=== PATIENT | male | born 1965 | race Caucasian/White ===

== ENCOUNTER 2021-02-27 13:45 | Emergency (ER) | payer OTHER, SELFPAY ==
[2021-02-27 14:06] VITALS: BP 137/62; PULSE 94; RESP 18; TEMP 37.3; O2SAT 98
--- NOTE | 2021-02-27 14:55 | PC.NURSE ---
PA at bedside for pt assessment.
[2021-02-27] MEDS: KETOROLAC (*BKC) 60 MG/2 ML VIAL IM (15:10)
[2021-02-27] MEDS: methylPREDNISolone SOD SUCC 125 MG VIAL IM (15:10)
--- NOTE | 2021-02-27 15:20 | ED.BACK ---
HPI - Back Pain/Injury General Chief Complaint: Back Pain/Injury Stated Complaint: Back Pain Going down R leg Time Seen by Provider: 02/27/21 14:16 Source: patient Mode of arrival: ambulatory Limitations: no limitations History of Present Illness HPI Narrative: Patient with chronic low back pain presents with chief complaint of exacerbation of his low back pain with right-sided radiculopathy. Patient has chronic back pain and neuropathy for which he takes gabapentin and oxycodone. Patient reports that he had degenerative disc and herniations. He denies any recent falls or injuries. Patient denies any loss of bowel or bladder function or saddle paresthesias. Patient denies abdominal pain, nausea or vomiting. He states he has not reached out to his primary care provider prescribes his pain medications to let him know if this flareup as he is out of town. Related Data Home Medications Medication Instructions Recorded Confirmed gabapentin PO 02/27/21 oxycodone-acetaminophen PO 02/27/21 tramadol mg 02/27/21 Allergies Allergy/AdvReac Type Severity Reaction Status Date / Time NKDA Allergy Mild Unknown Uncoded 02/27/21 14:35 Review of Systems Review of Systems: CONSTITUTIONAL: Denies fever, chills, or sweats. EYES: Denies visual changes, redness, or discharge. ENT: Denies rhinorrhea, congestion, sore throat, or otalgia. CARDIOVASCULAR: Denies chest pain, palpitations, or edema. RESPIRATORY: Denies cough or dyspnea. GASTROINTESTINAL: Denies abdominal pain, nausea, vomiting, or diarrhea. GENITOURINARY: Denies dysuria or hematuria. SKIN: Denies rash or itching. MUSCULOSKELETAL: Reports back pain, denies joint pain or myalgia. NEUROLOGIC: Denies headache, numbness, dizziness, or weakness. PSYCHIATRIC: Denies anxiety or depression. [facility] Past Medical History Medical History (Updated 02/27/21 @ 15:27 by Jm Bass PA-C) Degenerative disc disease Herniated disc Exam Narrative: GENERAL: Well-appearing, well-nourished, appears uncomfortable. HEAD: Normocephalic, atraumatic. EYES: PERRLA and EOMI. NECK: Supple. No adenopathy or masses. CHEST: Clear to auscultation. No respiratory distress. No wheezes rales or rhonchi HEART: Regular rate and rhythm. No murmur heard. Normal peripheral pulses. BACK: No pain with palpation of cervical, thoracic or lumbar spine however radicular pain elicited with palpation of right gluteal area. Also tender with palpation of right iliotibial band. Patient unable to lay down for straight leg raise test. EXTREMITIES: Normal range of motion. No edema. SKIN: Healed surgical incisions with deformity to the anterior medial aspect of the lower right leg. Warm, dry, no rash. NEURO: No focal deficits. Alert and oriented x3. PSYCH: Normal mood and affect. Course Vital Signs Vital signs: Vital Signs Temperature 99.2 F 02/27/21 14:06 Pulse Rate 94 02/27/21 14:06 Respiratory Rate 18 02/27/21 14:06 Blood Pressure 137/62 02/27/21 14:06 Pulse Oximetry 98 02/27/21 14:06 Temperature 99.2 F 02/27/21 14:06 Pulse Rate 94 02/27/21 14:06 Respiratory Rate 18 02/27/21 14:06 Blood Pressure 137/62 02/27/21 14:06 Pulse Oximetry 98 02/27/21 14:06 MDM - Back Pain/Injury MDM Narrative Medical decision making narrative: Patient denies any new injury in which extremity with likely find no etiology. Patient already takes oxycodone, gabapentin and tramadol. Will give patient Toradol and Solu-Medrol injection. Patient will be prescribed Medrol Dosepak and Toradol for home. Patient denies any contraindications to NSAIDs. Patient denies having diabetes. Discussed with patient the need to follow-up with his primary care for further investigation and management of his symptoms. Differential Diagnosis Differential diagnosis: Likely lumbar radiculopathy, sciatica, strain of lumbar region, renal colic, pyelonephritis, thoracic back pain and AAA Discharge Plan Discharge Cli
== END 2021-02-27 15:49 | disposition home or self-care (01) ==
PROVIDERS: Emergency Provider Emergency Medicine; PCP Family Medicine Adolescent Medicine
DX: M54.16 Radiculopathy, lumbar region (principal)
CPT/HCPCS: 96372; 99284; J1885; J2930

== ENCOUNTER 2021-11-14 01:11 | Day surgery (SDC) | payer OTHER, SELFPAY ==
[2021-10-30 12:32] VITALS: BMI 34.7
--- NOTE | 2021-11-13 16:05 | PM.HPGS ---
History of Present Illness History of Present Illness Consent: Risks, benefits, and alternatives have been discussed and questions answered. Patient agrees to proceed with procedure. Chief complaint: positive cologuard Narrative: Kaiden Campbell is a 56 year old male Referred for colon cancer screening. He performed a Cologuard test which was positive Review of Systems Review of Systems: All systems reviewed & are unremarkable except as noted in HPI and below PMFSH Past Medical History Medical History Degenerative disc disease Herniated disc Social History Social History Smoking status: Current every day smoker Tobacco type: cigarettes Second hand tobacco smoke exposure: No Alcohol intake: current Drinks per week: 2 Alcohol use details: twice monthly Substance use: never Substance use type: does not use Living arrangements: with family Additional occupation/education comments: Disabled Gender identity (if verbalized by the patient): Male Sexual Orientation (if Verbalized by the Patient): Straight or Heterosexual Spiritual care concerns: No Agree to blood products: Yes Meds Home Medications and Allergies Home Medications Medication Instructions Recorded Confirmed Type trazodone 150 mg tablet 150 mg PO QHS PRN 07/09/21 11/14/21 History tadalafil 20 mg tablet 20 mg PO .qod PRN tablet 07/25/21 11/14/21 History gabapentin 800 mg tablet 800 mg PO TID #90 tablet 08/12/21 11/14/21 Rx zolpidem 10 mg tablet 10 mg PO QHS PRN #30 tablet 09/12/21 11/14/21 Rx rosuvastatin 40 mg tablet 40 mg PO DAILY #90 tablet 10/07/21 11/14/21 Rx testosterone cypionate 200 mg/mL 200 mg IM .2 weeks #10 ml 10/07/21 11/14/21 Rx intramuscular oil lisinopril 20 mg tablet 20 mg PO DAILY #90 tablet 10/14/21 11/14/21 Rx oxycodone-acetaminophen 10 mg-325 1.5 tablet PO BID PRN #90 tablet 11/10/21 11/14/21 Rx mg tablet Allergies Allergy/AdvReac Type Severity Reaction Status Date / Time NKDA Allergy Mild Unknown Uncoded 11/14/21 07:41 Exam Resp: Auscultation: clear to auscultation bilaterally Cardio: Rate: regular rate Rhythm: regular rhythm GI: GI Palp: Yes Soft to palpation and No Tenderness to palpation present (GI) Assessment and Plan Assessment and plan (1) Colon cancer screening: Code(s): Z12.11 - Encounter for screening for malignant neoplasm of colon Status: Acute Assessment and Plan: Colonoscopy with possible biopsy or polypectomy or cautery or injection of substances.
[2021-11-14 07:42] VITALS: BP 152/85; PULSE 99; RESP 17; TEMP 36.7; O2SAT 100; BMI 33.7
[2021-11-14] MEDS: LACTATED RINGERS 1,000 ML 150 ML IV CONT (08:11)
--- NOTE | 2021-11-14 09:03 | P.PNAN_ITS ---
Anes - Initial Pre Proc Eval Procedure: Operation Date: 11/14/21 09:00 Proposed Procedures p Colonoscopy - Mj Monteiro MD Date/Time: 11/14/21 09:03 Surgeon: Mj Monteiro MD Pre Op Diagnosis: positive cologuard Patient Data Age: 56 Gender: M Height: 1.78 m Weight: 106.9 kg Last Vital Signs Temp 98.1 F 11/14/21 07:42 Pulse 99 11/14/21 07:42 Resp 17 11/14/21 07:42 BP 152/85 H 11/14/21 07:42 Pulse Ox 100 11/14/21 07:42 Allergies Allergy/AdvReac Type Severity Reaction Status Date / Time NKDA Allergy Mild Unknown Uncoded 11/14/21 07:41 Home Medications Medication Instructions Recorded Confirmed Type trazodone 150 mg tablet 150 mg PO QHS PRN 07/09/21 11/14/21 History tadalafil 20 mg tablet 20 mg PO .qod PRN tablet 07/25/21 11/14/21 History gabapentin 800 mg tablet 800 mg PO TID #90 tablet 08/12/21 11/14/21 Rx zolpidem 10 mg tablet 10 mg PO QHS PRN #30 tablet 09/12/21 11/14/21 Rx rosuvastatin 40 mg tablet 40 mg PO DAILY #90 tablet 10/07/21 11/14/21 Rx testosterone cypionate 200 mg/mL 200 mg IM .2 weeks #10 ml 10/07/21 11/14/21 Rx intramuscular oil lisinopril 20 mg tablet 20 mg PO DAILY #90 tablet 10/14/21 11/14/21 Rx oxycodone-acetaminophen 10 mg-325 1.5 tablet PO BID PRN #90 tablet 11/10/21 11/14/21 Rx mg tablet Patient hx anesthesia problems: none Family hx anesthesia problems: none Results Review: All pre-operative results and documents have been reviewed as part of the pre-operative evaluation. [facility] Past Medical History Medical History Degenerative disc disease Herniated disc Social History Social History Smoking status: Current every day smoker Tobacco type: cigarettes Second hand tobacco smoke exposure: No Alcohol intake: current Drinks per week: 2 Alcohol use details: twice monthly Substance use: never Substance use type: does not use Living arrangements: with family Additional occupation/education comments: Disabled Gender identity (if verbalized by the patient): Male Sexual Orientation (if Verbalized by the Patient): Straight or Heterosexual Spiritual care concerns: No Agree to blood products: Yes Anes - Eval Final PreProcedure Day of Procedure 11/14/21 09:03 Patient weight: obese Heart: regular rate and rhythm Lungs: clear to auscultation Airway: Mallampati scale class III Neurological: alert and oriented Last oral intake: >/= 8 hours ASA classification: III Emergent: no Anesthetic plan: proceed Anesthesia type and monitoring: general GIVS and standard monitoring Results Review: All pre-operative results and documents have been reviewed as part of the pre-operative evaluation. Informed Consent: The patient's anesthetic plan and its attendant risks and benefits were discussed with the patient/family/POA. Questions were solicited and answers provided to the satisfaction of the patient/family/POA.
[2021-11-14 09:51] VITALS: BP 80/52; PULSE 78; RESP 20; O2SAT 98
[2021-11-14 10:01] VITALS: BP 104/55; PULSE 82; RESP 20; O2SAT 98
[2021-11-14 10:11] VITALS: BP 103/68; PULSE 74; RESP 22; O2SAT 98
--- NOTE | 2021-11-14 10:18 | SUR.PHASEII ---
DR FENTON MADE AWARE OF PT'S VITAL SIGNS IN POST OP, CAME OUT OF PROCEDURE B/P 80/52, CURRENTLY 104/55, PT AWAKE AND TALKING, NO COMPLAINTS OF DIZZINESS OR LIGHTHEADEDNESS, NO NEW ORDERS RECEIVED. PT AND SPOUSE INSTRUCTED ON ALL SAFETY CONCERNS AND STATE UNDERSTANDING.
== END 2021-11-14 10:25 | disposition home or self-care (01) ==
PROVIDERS: PCP Family Medicine Adolescent Medicine; Visit Provider Internal Medicine Gastroenterology
PROC: 0DJD8ZZ Inspection of Lower Intestinal Tract, Via Natural or Artificial Opening Endoscopic (ICD-10-PCS; CPT 45378; principal; 2021-11-14 09:00)
DX: Z12.11 Encounter for screening for malignant neoplasm of colon (principal); D12.2 Benign neoplasm of ascending colon; D12.4 Benign neoplasm of descending colon; D12.5 Benign neoplasm of sigmoid colon; R19.5 Other fecal abnormalities; F17.210 Nicotine dependence, cigarettes, uncomplicated; E66.9 Obesity, unspecified; Z68.33 Body mass index [BMI] 33.0-33.9, adult; M47.9 Spondylosis, unspecified
CPT/HCPCS: 45385; 45381; 88305; J2370; J2704; J7120

== ENCOUNTER 2023-10-20 00:40 | Day surgery (SDC) | payer OTHER, MEDICAID, SELFPAY ==
[2023-10-06 14:49] VITALS: BMI 33.0
[2023-10-20 06:32] VITALS: BP 135/73; PULSE 80; RESP 18; TEMP 36.2; O2SAT 96
[2023-10-20] MEDS: LACTATED RINGERS 1,000 ML 150 ML IV CONT (06:43)
--- NOTE | 2023-10-20 07:23 | WPDANESEPPF ---
Anes - Initial Pre Proc Eval Procedure: Operation Date: 10/20/23 07:30 Proposed Procedures p Screening Colonoscopy - Jose Hughes MD Date/Time: 10/20/23 07:23 Surgeon: Jose Hughes MD Pre Op Diagnosis: hx of colon polyps Patient Data Age: 58 Gender: M Height: 1.78 m Weight: 103.1 kg Last Vital Signs Temp 97.1 F L 10/20/23 06:32 Pulse 80 10/20/23 06:32 Resp 18 10/20/23 06:32 BP 135/73 10/20/23 06:32 Pulse Ox 96 10/20/23 06:32 O2 Del Method Room Air 10/20/23 06:32 Allergies Allergy/AdvReac Type Severity Reaction Status Date / Time No Known Allergies Allergy Verified 10/20/23 06:30 Home Medications Medication Instructions Recorded Confirmed Type tadalafil 20 mg tablet 20 mg PO .qod PRN Erectile 07/06/22 10/06/23 Rx Dysfunction #10 tabs finasteride 5 mg tablet 5 mg PO DAILY #90 tabs 04/28/23 10/06/23 Rx lisinopril 20 mg tablet 20 mg PO DAILY #90 tabs 05/24/23 10/06/23 Rx rosuvastatin 20 mg tablet 20 mg PO DAILY #90 tabs 06/04/23 10/06/23 Rx zolpidem 10 mg tablet 10 mg PO QHS PRN sleep #30 tabs 06/14/23 10/06/23 Rx tadalafil 5 mg tablet 5 mg PO DAILY #30 tabs 08/05/23 10/06/23 Rx tamsulosin 0.4 mg capsule 0.8 mg PO DAILY #60 caps 08/30/23 10/06/23 Rx gabapentin 800 mg tablet 800 mg PO TID #270 tabs 09/02/23 10/06/23 Rx oxycodone-acetaminophen 10 mg-325 1.5 tablet PO BID PRN pain #90 tabs 09/20/23 10/06/23 Rx mg tablet testosterone cypionate 200 mg/mL 200 mg IM .2 weeks #10 mL 10/14/23 10/20/23 Rx intramuscular oil Patient hx anesthesia problems: none Family hx anesthesia problems: none Results Review: All pre-operative results and documents have been reviewed as part of the pre-operative evaluation. [facility] Past Medical History Medical History Degenerative disc disease Herniated disc History of broken leg Surgical History Surgical History History of neck surgery Hx of carpal tunnel repair Family History Family History Mother Heart disease Hypertension Sibling Heart disease Diabetes mellitus Social History Social History Smoking packs per day: 1.5 Smoking cigarettes per day: 30.0 Years smoked: 40 Smoking pack-years: 60.00 Smoking status: Heavy tobacco smoker Tobacco type: cigarettes Second hand tobacco smoke exposure: No Alcohol intake: current Drinks per week: 2 Alcohol use details: couple times a month Substance use: current Substance use type: marijuana Other substance usage details: gummies occas Living arrangements: with family Occupation/Education: other Additional occupation/education comments: Disabled Gender identity (if verbalized by the patient): Male Sexual Orientation (if Verbalized by the Patient): Straight or Heterosexual Spiritual care concerns: No Agree to blood products: Yes Anes - Eval Final PreProcedure Day of Procedure 10/20/23 07:23 Patient weight: obese Heart: regular rate and rhythm Lungs: clear to auscultation Airway: Mallampati scale class II Neurological: alert and oriented Last oral intake: >/= 8 hours ASA classification: III Emergent: no Anesthetic plan: proceed Anesthesia type and monitoring: general GIVS and standard monitoring Results Review: All pre-operative results and documents have been reviewed as part of the pre-operative evaluation. Informed Consent: The patient's anesthetic plan and its attendant risks and benefits were discussed with the patient/family/POA. Questions were solicited and answers provided to the satisfaction of the patient/family/POA.
--- NOTE | 2023-10-20 07:27 | PM.HPGS ---
History of Present Illness History of Present Illness Consent: Risks, benefits, and alternatives have been discussed and questions answered. Patient agrees to proceed with procedure. Chief complaint: hx of colon polyps Narrative: Kaiden Campbell is a 58 year old male with last colonoscopy 10/2021 with several TA polyps removed Review of Systems Review of Systems: All systems reviewed & are unremarkable except as noted in HPI and below PMFSH Past Medical History Medical History (Updated 10/20/23 @ 07:29 by Jose Hughes MD) Adenomatous colon polyp Degenerative disc disease Herniated disc History of broken leg Surgical History Surgical History History of neck surgery Hx of carpal tunnel repair Family History Family History Mother Heart disease Hypertension Sibling Heart disease Diabetes mellitus Social History Social History Smoking packs per day: 1.5 Smoking cigarettes per day: 30.0 Years smoked: 40 Smoking pack-years: 60.00 Smoking status: Heavy tobacco smoker Tobacco type: cigarettes Second hand tobacco smoke exposure: No Alcohol intake: current Drinks per week: 2 Alcohol use details: couple times a month Substance use: current Substance use type: marijuana Other substance usage details: gummies occas Living arrangements: with family Occupation/Education: other Additional occupation/education comments: Disabled Gender identity (if verbalized by the patient): Male Sexual Orientation (if Verbalized by the Patient): Straight or Heterosexual Spiritual care concerns: No Agree to blood products: Yes Meds Home Medications and Allergies Home Medications Medication Instructions Recorded Confirmed Type tadalafil 20 mg tablet 20 mg PO .qod PRN Erectile 07/06/22 10/06/23 Rx Dysfunction #10 tabs finasteride 5 mg tablet 5 mg PO DAILY #90 tabs 04/28/23 10/06/23 Rx lisinopril 20 mg tablet 20 mg PO DAILY #90 tabs 05/24/23 10/06/23 Rx rosuvastatin 20 mg tablet 20 mg PO DAILY #90 tabs 06/04/23 10/06/23 Rx zolpidem 10 mg tablet 10 mg PO QHS PRN sleep #30 tabs 06/14/23 10/06/23 Rx tadalafil 5 mg tablet 5 mg PO DAILY #30 tabs 08/05/23 10/06/23 Rx tamsulosin 0.4 mg capsule 0.8 mg PO DAILY #60 caps 08/30/23 10/06/23 Rx gabapentin 800 mg tablet 800 mg PO TID #270 tabs 09/02/23 10/06/23 Rx oxycodone-acetaminophen 10 mg-325 1.5 tablet PO BID PRN pain #90 tabs 09/20/23 10/06/23 Rx mg tablet testosterone cypionate 200 mg/mL 200 mg IM .2 weeks #10 mL 10/14/23 10/20/23 Rx intramuscular oil Allergies Allergy/AdvReac Type Severity Reaction Status Date / Time No Known Allergies Allergy Verified 10/20/23 06:30 Vital Signs Vital Signs - 24 hr 10/20/23 06:32 Temperature 97.1 F L Pulse Rate 80 Respiratory Rate 18 Blood Pressure 135/73 Pulse Oximetry 96 Oxygen Delivery Room Air Exam Const: General: comfortable and no acute distress HENMT: Face/Nose/Sinus: Normal nares present Eyes: General: appearance normal, both eyes and all related structures Neck: Neck: no JVD Resp: Auscultation: clear to auscultation bilaterally Cardio: Rate: regular rate Rhythm: regular rhythm GI: Inspection: non-distended GI Palp: Yes Soft to palpation Skin: General skin exam: normal color Neuro: General: gait normal Speech: normal speech Extrem: General: normal to inspection Psych: Mental Status: mental status grossly normal Assessment and Plan Assessment and plan (1) Adenomatous colon polyp: Code(s): D12.6 - Benign neoplasm of colon, unspecified Status: Acute Assessment and Plan: colonoscopy
[2023-10-20 07:46] VITALS: BP 89/52; PULSE 66; RESP 13; O2SAT 92
[2023-10-20 07:56] VITALS: BP 99/51; PULSE 61; RESP 18; O2SAT 95
[2023-10-20 08:06] VITALS: BP 101/58; PULSE 60; RESP 18; O2SAT 97
== END 2023-10-20 08:12 | disposition home or self-care (01) ==
PROVIDERS: PCP Family Medicine Adolescent Medicine; Visit Provider Internal Medicine Gastroenterology
PROC: 0DJD8ZZ Inspection of Lower Intestinal Tract, Via Natural or Artificial Opening Endoscopic (ICD-10-PCS; CPT 45378; principal; 2023-10-20 07:30)
DX: Z12.11 Encounter for screening for malignant neoplasm of colon (principal); D12.3 Benign neoplasm of transverse colon; D12.5 Benign neoplasm of sigmoid colon; K64.8 Other hemorrhoids; Z79.891 Long term (current) use of opiate analgesic; Z79.890 Hormone replacement therapy; F17.210 Nicotine dependence, cigarettes, uncomplicated; F12.90 Cannabis use, unspecified, uncomplicated; E66.9 Obesity, unspecified; Z68.32 Body mass index [BMI] 32.0-32.9, adult
CPT/HCPCS: 45385; 88305; J2704; J7120